=== PATIENT | female | born 1995 | race Caucasian/White ===

== ENCOUNTER 2019-12-24 16:31 | Emergency (ER) | payer OTHER, SELFPAY ==
[2019-12-24 16:35] VITALS: BP 116/59; PULSE 80; RESP 14; TEMP 36.4; O2SAT 99
[2019-12-24] MEDS: SODIUM CHLORIDE 0.9% 1,000 ML 1000 ML IV (17:29)
[2019-12-24] MEDS: diphenhydrAMINE 50 MG/ML VIAL IV (17:29)
[2019-12-24] MEDS: METOCLOPRAMIDE 10 MG/2 ML INJ IV (17:29)
[2019-12-24] MEDS: KETOROLAC 60 MG/2 ML VIAL 30 MG IV (17:29)
[2019-12-24 17:37] LABS: Bacteria Urine Few (2-10); Mucus Urine 1+ (Negative); RBC Urine 0-1/HPF (0-5/HPF); Squamous Epithelial Cell Urine 5-10 /HPF (0-5/HPF); WBC Urine 1-5/HPF (0-5/HPF)
[2019-12-24 17:39] LABS: Culture Indicated Urine Cult Not Indicated
[2019-12-24] MEDS: SODIUM CHLORIDE 0.9% 500 ML 1000 ML IV (19:01)
[2019-12-24] MEDS: DEXAMETHASONE 10 MG/ML VIAL IV (19:01)
--- NOTE | 2019-12-24 19:14 | ED_ITS ---
HPI - Headache <OLMAN Rich - Last Filed: 12/24/19 19:48> General Chief Complaint: Headache Stated Complaint: migraine issues Time Seen by Provider: 12/24/19 16:57 Source: patient Mode of arrival: Ambulatory Limitations: no limitations History of Present Illness HPI Narrative: the patient is a 24-year-old female with history of migraines with prescription of Fioricet who presents with a chief complaint of a headache that is been ongoing for several weeks. She states that she has tried Fioricet at home she started having headaches 2 months ago, yesterday had a worsening headache but it was improved by her Fioricet. She states she had some visual changes, tunnel vision sensitivity to light and noise. She had nausea no vomiting. She has only taken Fioricet today. She denies any thunderclap sensation or confusion no states that she felt foggy. she denies any weakness or tingling. She states that she had imaging done recently at the [facility], had a CT, does not know if it was for her head or her face but she does not know the results. Related Data Allergies Allergy/AdvReac Type Severity Reaction Status Date / Time Sulfa (Sulfonamide Allergy Verified 12/24/19 16:39 Antibiotics) Review of Systems <OLMAN Rich - Last Filed: 12/24/19 19:48> Review of Systems Narrative: GENERAL: Denies chills, fatigue, malaise, fever, sweats. HEENT: Denies sinus pain, ear pain, sore throat, difficulty swallowing, dizziness. RESPIRATORY: Denies dyspnea, cough, wheezing, hemoptysis, sputum. CARDIOVASCULAR: Denies chest pain, palpitations, orthopnea, edema, GASTROINTESTINAL: Denies nausea, vomiting, abdominal pain, diarrhea, constipation, melena. : Denies dysuria, frequency, incontinence, hematuria, urinary retention. MUSCULOSKELETAL: denies weakness, joint pain, or bony pain SKIN: Denies rash, skin lesions, or other NEUROLOGIC: See HPI PSYCHIATRIC: No concerning psychosocial issues. 12 point review of systems is negative except for those stated above Patient History <OLMAN Rich - Last Filed: 12/24/19 19:48> Social History Smoking Status: Current some day smoker Smoking Status: Current some day smoker Exam <OLMAN Rich - Last Filed: 12/24/19 19:48> Narrative Exam Narrative: GENERAL: This is a well-nourished, well-developed patient, in no acute distress HEAD: Atraumatic. Normocephalic. No temporal or scalp tenderness. EYES: Pupils equal round and reactive. Extraocular motions intact. No scleral icterus. No injection or drainage. ENT: Nose without bleeding, purulent drainage or septal hematoma. Throat without erythema, tonsillar hypertrophy or exudate. Uvula midline. Airway patent. NECK: Trachea midline. No JVD or lymphadenopathy. Supple, nontender, no meningeal signs. CARDIOVASCULAR: Regular rate and rhythm RESPIRATORY: Clear to auscultation. Breath sounds equal bilaterally. No wheezes, rales, or rhonchi. GASTROINTESTINAL: Abdomen soft, non-tender, nondistended. No hepato- splenomegaly, or palpable masses. No guarding. EXTREMITIES: No clubbing, cyanosis, or edema. No joint tenderness, effusion, or edema noted. BACK: Nontender without deformity or crepitance. No flank tenderness. NEURO: AOx3. interactive. Age appropriate. Following commands. Strength is equal upper and lower extremities bilaterally. Clear speech. Cranial nerves grossly intact. SKIN: No rash or erythema. Initial Vital Signs Initial Vital Signs: Vital Signs Temperature 97.6 F 12/24/19 16:35 Pulse Rate 80 12/24/19 16:35 Respiratory Rate 14 12/24/19 16:35 Blood Pressure 116/59 L 12/24/19 16:35 Pulse Oximetry 99 12/24/19 16:35 <Mando Lobo DO - Last Filed: 12/24/19 22:29> Initial Vital Signs Initial Vital Signs: Vital Signs Temperature 97.6 F 12/24/19 16:35 Pulse Rate 80 12/24/19 16:35 Respiratory Rate 14 12/24/19 16:35 Blood Pressure 116/59 L 12/24/19 16:35 Pulse Oximetry 99 12/24/19 16:35 Scores <OLMAN Rich - Last Filed: 12/24/19 19:48> GCS [place] coma scale eye opening: Spontaneous Sharif coma scale verbal response: Orientated Sharif coma scale motor response: Obey commands [place] coma scale total score: 15 Course <OLMAN Rich - Last Filed: 12/24/19 19:48> Course Course Narrative: I obtained imaging from [facility] [place] which [place] a CT brain head without contrast for this patient which was done on 12/11/2019. This imaging reflected a normal unenhanced cranial CT Orders Ordered: ED Orders 12/24/19 17:00 Urine Microscopic Stat Discontinued Medications Dexamethasone (Decadron) 10 mg IV NOW ONE Stop: 12/24/19 18:35 Last Admin: 12/24/19 19:01 Dose: 10 mg Documented by: MIKIE Diphenhydramine HCl (Benadryl) 50 mg IV NOW ONE Stop: 12/24/19 17:17 Last Admin: 12/24/19 17:29 Dose: 50 mg Documented by: VANDANA Sodium Chloride (Normal Saline 0.9%) 1,000 mls @ 1,000 mls/hr IV BOLUS ONE Stop: 12/24/19 18:15 Last Infusion: 12/24/19 18:29 Dose: 0 mls/hr Documented by: Admin: 12/24/19 17:29 Dose: 1,000 mls/hr Documented by: VANDANA Sodium Chloride (Normal Saline 0.9%) 500 mls @ 1,000 mls/hr IV BOLUS ONE Stop: 12/24/19 19:03 Last Infusion: 12/24/19 19:42 Dose: 0 mls/hr Documented by: Admin: 12/24/19 19:01 Dose: 1,000 mls/hr Documented by: MIKIE Ketorolac Tromethamine (Toradol) 30 mg IV NOW ONE Stop: 12/24/19 17:17 Last Admin: 12/24/19 17:29 Dose: 30 mg Documented by: VANDANA Metoclopramide HCl (Reglan) 10 mg IV NOW ONE Stop: 12/24/19 17:17 Last Admin: 12/24/19 17:29 Dose: 10 mg Documented by: VANDANA Vital Signs Vital signs: Vital Signs - 8 hr 12/24/19 16:35 12/24/19 19:55 Temperature 97.6 F Pulse Rate 80 87 Respiratory Rate 14 16 Blood Pressure 116/59 L 106/69 Pulse Oximetry 99 100 <Mando Lobo DO - Last Filed: 12/24/19 22:29> Orders Ordered: ED Orders 12/24/19 17:00 Urine Microscopic Stat Discontinued Medications Dexamethasone (Decadron) 10 mg IV NOW ONE Stop: 12/24/19 18:35 Last Admin: 12/24/19 19:01 Dose: 10 mg Documented by: MIKIE Diphenhydramine HCl (Benadryl) 50 mg IV NOW ONE Stop: 12/24/19 17:17 Last Admin: 12/24/19 17:29 Dose: 50 mg Documented by: VANDANA Sodium Chloride (Normal Saline 0.9%) 1,000 mls @ 1,000 mls/hr IV BOLUS ONE Stop: 12/24/19 18:15 Last Infusion: 12/24/19 18:29 Dose: 0 mls/hr Documented by: Admin: 12/24/19 17:29 Dose: 1,000 mls/hr Documented by: VANDANA Sodium Chloride (Normal Saline 0.9%) 500 mls @ 1,000 mls/hr IV BOLUS ONE Stop: 12/24/19 19:03 Last Infusion: 12/24/19 19:42 Dose: 0 mls/hr Documented by: Admin: 12/24/19 19:01 Dose: 1,000 mls/hr Documented by: MIKIE Ketorolac Tromethamine (Toradol) 30 mg IV NOW ONE Stop: 12/24/19 17:17 Last Admin: 12/24/19 17:29 Dose: 30 mg Documented by: VANDANA Metoclopramide HCl (Reglan) 10 mg IV NOW ONE Stop: 12/24/19 17:17 Last Admin: 12/24/19 17:29 Dose: 10 mg Documented by: VANDANA Vital Signs Vital signs: Vital Signs - 8 hr 12/24/19 16:35 12/24/19 19:55 Temperature 97.6 F Pulse Rate 80 87 Respiratory Rate 14 16 Blood Pressure 116/59 L 106/69 Pulse Oximetry 99 100 MDM - Headache <OLMAN Rich - Last Filed: 12/24/19 19:48> Lab Data Labs: Lab Results 12/24/19 Range/Units 17:00 Urine RBC 0-1/hpf (0-5/HPF) Urine WBC 1-5/hpf (0-5/HPF) Ur Squamous Epith Cells 5-10 /hpf H (0-5/HPF) Urine Bacteria Few (2-10) H (None) Urine Mucus 1+ H (Negative) Ur Culture Indicated? Cult not indicated Micro UA Comment See comment Point of Care Testing Test Results Negative Urine Dip Bedside Urine Glucose Negative Bedside Urine Bilirubin - Negative Bedside Urine Ketone - Negative Urine Specific [place] 1.030 Bedside Urine Occult Blood - Negative Bedside Urine pH 5.5 Bedside Urine Protein - Negative Bedside Urine Urobilinogen - Negative Bedside Urine Nitrite - Negative Bedside Urine Leukocytes + 70 Esterase MDM Narrative Medical decision making narrative: The patient is a 24-year-old female who presents with a chief complaint of migraine issues for several months. She has had no relief with home Fioricet. She denies any neurological changes, other than transient tunnel vision yesterday when it was really bad. She recently had a CT of her head, which had no acute findings as I found 1 records were obtained. Thus we held off on imaging her today. She feels much improved after the above-stated therapies. I discussed at length follow up with primary care provider coming back to the emergency department for any acute concerns such as inability keep down fluids, neurological changes seizure activity etcetera <Mando Lobo, DO - Last Filed: 12/24/19 22:29> Lab Data Labs: Lab Results 12/24/19 Range/Units 17:00 Urine RBC 0-1/hpf (0-5/HPF) Urine WBC 1-5/hpf (0-5/HPF) Ur Squamous Epith Cells 5-10 /hpf H (0-5/HPF) Urine Bacteria Few (2-10) H (None) Urine Mucus 1+ H (Negative) Ur Culture Indicated? Cult not indicated Micro UA Comment See comment Point of Care Testing Test Results Negative Urine Dip Bedside Urine Glucose Negative Bedside Urine Bilirubin - Negative Bedside Urine Ketone - Negative Urine Specific [place] 1.030 Bedside Urine Occult Blood - Negative Bedside Urine pH 5.5 Bedside Urine Protein - Negative Bedside Urine Urobilinogen - Negative Bedside Urine Nitrite - Negative Bedside Urine Leukocytes + 70 Esterase Discharge Plan Departure Patient Disposition: Home Clinical Impression: Headache Qualifiers: Headache type: unspecified Headache chronicity pattern: chronic headache Intractability: not intractable Qualified Code(s): R51 - Headache Discharge Date/Time: 12/24/19 19:55 Instructions: DI for Migraine, DI for Headache Activity Restrictions/Additional Instructions: Thank you for trusting us with your care today. We have given you medications for migraine and headache please follow-up with primary care provider next few days please go home and rest tonight. Please come back to the emergency department for any acute concerns such as neurological deficit, seizures etcetera Referrals: [facility] [Provider Group] <Mando Lobo DO - Last Filed: 12/24/19 22:29> Cosign ED Attending Sheilaature Attestation: I was immediately available in the department for consultation. This documentation has been reviewed and I agree with assessment and plan. Supervised by Mando Lobo DO
[2019-12-24 19:55] VITALS: BP 106/69; PULSE 87; RESP 16; O2SAT 100
== END 2019-12-24 19:55 | disposition home or self-care (01) ==
PROVIDERS: Emergency Provider Nurse Practitioner Family
DX: R51 Headache (principal)
CPT/HCPCS: 36415; 81003; 81015; 81025; 96361; 96374; 96375; 99284; J1100; J1200; J1885; J2765

== ENCOUNTER 2024-10-09 08:17 | Emergency (ER) | payer OTHER, SELFPAY ==
[2024-10-09 08:32] VITALS: BP 122/76; PULSE 89; RESP 18; TEMP 37; O2SAT 100; BMI 29.7
--- NOTE | 2024-10-09 10:10 | ED_ITS ---
HPI - Wound/Laceration General Chief Complaint: Wound/Laceration Stated Complaint: L hand laceration Time Seen by Provider: 10/09/24 10:02 Source: patient, RN notes reviewed and old records reviewed Mode of arrival: Family Vehicle Limitations: no limitations History of Present Illness HPI narrative: 29-year-old female on fluoxetine and omeprazole who presents with complaint of laceration to the left hand. Patient was trying to take the pit out of an avocado when she accidentally cut herself between her 3rd and 4th fingers. Does gape, she denies any other injuries. States her tetanus is up-to-date. States allergic to sulfa but no other medication allergies. Does use tobacco, no alcohol, no reported recreational drugs. No numbness tingling or other injuries. No active bleeding. This occurred earlier this morning. Related Data Allergies Allergy/AdvReac Type Severity Reaction Status Date / Time Sulfa (Sulfonamide Allergy Verified 10/09/24 08:54 Antibiotics) Review of Systems Review of Systems ROS Unobtainable: All systems reviewed & are unremarkable except as noted in HPI and below Patient History Social History Smoking Status: Current some day smoker Smoking Status: Current some day smoker tobacco type: cigarettes Exam Narrative Exam Narrative: GENERAL: Alert and oriented x three, female in mild distress HEENT: Head normocephalic, atraumatic, EOMI, pupils reactive, face symmetric, moist mucous membranes NECK: Supple, full range of motion CARDIOVASCULAR: Regular rate and rhythm without murmurs, rubs or gallops. RESPIRATORY: Breath sounds equal bilaterally, no wheezes rales or rhonchi. EXTREMITIES: Normal range of motion, no clubbing or edema. Neurovascularly intact. Patient has a small 0.5 cm laceration between the 3rd and 4th finger does gape when they are , just through the skin, no tendon or ligament involvement appreciated. Full range of motion, normal strength. Nontender to touch to the bones. Cap refill less than 2 seconds in all 5 fingers. 2+ radial pulse. No active bleeding. NEUROLOGICAL: Cranial nerves II through XII grossly intact. Moving all extremities SKIN: Warm, dry, no petechiae, no rashes or lesions. Initial Vital Signs Initial Vital Signs: Vital Signs Temperature 98.6 F 10/09/24 08:32 Pulse Rate 89 10/09/24 08:32 Respiratory Rate 18 10/09/24 08:32 Blood Pressure 122/76 10/09/24 08:32 Pulse Oximetry 100 10/09/24 08:32 Oxygen Delivery Method Room Air 10/09/24 08:32 Procedures Laceration Repair Laceration 1: Site: hand Side (If applicable): left Size (cm): 0.5 Description: linear and clean Depth: simple, single layer Local Anesthetic: lidocaine 2% Amount of anesthesia used (mL): 2 Pre-repair: wound explored, irrigated extensively and deep structures intact Skin layer closed with: nylon Skin layer suture size: 4-0 Number of sutures: 3 Technique: simple, interrupted Course Orders Ordered: Discontinued Medications Lidocaine HCl (Lidocaine 2% Inj Sdv 5ml) 5 ml INJ INTRA-OP ONE Stop: 10/09/24 10:20 Vital Signs Vital signs: Vital Signs - 8 hr 10/09/24 08:32 Temperature 98.6 F Pulse Rate 89 Respiratory Rate 18 Blood Pressure 122/76 Pulse Oximetry 100 Oxygen Delivery Method Room Air MDM - Wound/Laceration MDM Narrative Medical decision making narrative: 29-year-old female had laceration between her 3rd and 4th digits when trying to pit an avocado. Tetanus is up-to-date she was neurovascularly intact with no signs of ligament tenderness or bony injury. The area does gape quite a bit with abduction her fingers was repaired after verbal consent. Discharge Plan Departure Patient Disposition: Home Clinical Impression: Laceration of hand Instructions: DI for Laceration Repair Activity Restrictions/Additional Instructions: Wound Care: Keep wound(s) clean and dry. Wash daily with soap and water only. Do not use over the counter products (alcohol or peroxide)on the wounds unless instructed by a physician. You can use topical triple antibiotic ointment to the affected area. If wound condition worsens (increased/expanding redness, developing fluid blisters, or worsening pain), either contact your doctor for an urgent re- assessment , or return to the Emergency Department. Return to the ED, urgent care, or visit a primary care doctor for removal or of your sutures in 7-10 days. Return if fever greater than 100.4 Fahrenheit, increased swelling, increasing pain or worsening symptoms such as increased discharge or spreading redness. Stand Alone Forms: Patient Portal/API/Survey
[2024-10-09 11:33] VITALS: BP 115/72; PULSE 89; RESP 20; TEMP 37; O2SAT 100
== END 2024-10-09 11:34 | disposition home or self-care (01) ==
PROVIDERS: Emergency Provider Emergency Medicine
DX: S61.412A Laceration without foreign body of left hand, initial encounter (principal); W26.0XXA Contact with knife, initial encounter; F17.210 Nicotine dependence, cigarettes, uncomplicated
CPT/HCPCS: 12001; 99282; 99283